=== PATIENT | female | born 1965 ===

== ENCOUNTER 2022-08-06 15:10 | Outpatient (OUT) | payer OTHER, SELFPAY ==
--- NOTE | 2022-08-06 15:33 | XR_ITS ---
[facility] [place] [id number] Patient Name: PRINCESS PEDRO MRN: [id number] date: 1965 Sex: F Assigned Patient Location: [facility] Current Patient Location: [facility] Accession/Order Number: [id number] Exam Date: 08/06/2022 15:33 Report Date: 08/06/2022 20:23 At the request of: RL CAAL Procedure: XR foot RT min 3V EXAM: XR foot RT min 3V HISTORY: RIGHT FOOT PAIN COMPARISON: None. TECHNIQUE: 3 views of the right foot were obtained. FINDINGS: There is no evidence of an acute fracture or dislocation. The joint spaces are intact. An osteophyte arises from the plantar aspect of the calcaneus. Very mild soft tissue swelling is noted about the midfoot extending distally. IMPRESSION: No acute fracture or dislocation. A small osteophyte arises from the plantar aspect of the calcaneus. No abnormal soft tissue calcifications are present. Electronically authenticated by: RL NG Date: 08/06/2022 20:23
== END 2022-08-06 15:11 | disposition home or self-care (01) ==
LOC: RAD 15:11
PROVIDERS: Visit Provider Podiatrist Foot & Ankle Surgery
DX: M79.671 Pain in right foot (principal); M25.771 Osteophyte, right ankle
CPT/HCPCS: 73630